=== PATIENT | male | born 1955 | race American Indian/Alaskan Native ===

== ENCOUNTER 2017-01-24 14:07 | Inpatient (IN) | payer OTHER ==
--- NOTE | 2017-01-24 16:13 | XRay Report ---
CHEST 2 VIEWS INDICATION: Chest pain. Possible left rib fractures. COMPARISON: None similar at this institution. FINDINGS: PA and lateral chest radiographs demonstrate normal cardiomediastinal silhouette. Clear lungs. Left seventh and eighth rib fracture suspected. CONCLUSION: Left seventh and eighth ribs acute fractures without acute lung abnormality. Thank you for the opportunity to participate in this patient's care.
--- NOTE | 2017-01-24 16:16 | XRay Report ---
RIB RADIOGRAPHS - LEFT INDICATION: Rib pain. COMPARISON: None similar. FINDINGS: AP and oblique radiographs to evaluate left ribs, 2 projections demonstrate normal cardiomediastinal silhouette. Clear lungs without effusions, CHF or pneumothorax. A 2-3 mm extreme right lung base calcified granuloma possible. Subtle acute fractures noted along left seventh and eighth ribs posteriorly. CONCLUSION: Left seventh and eighth rib acute fractures, as described. Thank you for the opportunity to participate in this patient's care.
[2017-01-24 16:33] LABS: INR 0.97 (0.87-1.13)
[2017-01-24 16:34] LABS: Partial Thromboplastin Time 30.3 Sec. (24.2-36.6)
[2017-01-24 16:42] LABS: Albumin 5.1 g/dL (3.9-5); Albumin/Globulin Ratio 1.1 %; Bilirubin,Direct 0.4 mg/dL (0-0.2); Bilirubin,Indirect 1.6 mg/dL; Magnesium 2.5 mg/dL (1.7-2.3); Total Protein 9.6 g/dL (6.3-8.2)
[2017-01-24 16:43] LABS: Anion Gap 26 mmol/L; BUN/Creatinine Ratio 15; Blood Urea Nitrogen 12 mg/dL (9-20); Calcium 10.9 mg/dL (8.4-10.2); Carbon Dioxide 26 mmol/L (22-30); Chloride 87.4 mmol/L (98-107); Glucose 213 mg/dL (75-100); Potassium 4.9 mmol/L (3.6-5.0); Sodium 134 mmol/L (137-145)
[2017-01-24 16:46] LABS: Basophils % (Auto) 0.6 % (0.0-1.8); Eosinophils % (Auto) 0.3 % (0.0-4.3); Mean Corpuscular HGB Conc 33 % (32-34); Mean Corpuscular Hemoglobin 31 pg (28-32); Mean Corpuscular Volume 94 fl (84-94); Red Cell Distribution Width 16.6 % (13.2-15.2); White Blood Count 6.9 K/mm3 (4.5-11.0)
[2017-01-24 16:59] LABS: Platelet Count 152 K/mm3 (140-440)
[2017-01-24 17:03] LABS: Hemoglobin 21.1 gm/dl (11.8-15.2)
[2017-01-24] MEDS ORDERED: VALIUM IV ONE (18:15)
[2017-01-24] MEDS ORDERED: NACL 0.9% 1000 ML 1,000 ML IV ONE (18:17)
[2017-01-24] MEDS ORDERED: VITAMIN B-1 100 MG, FOLVITE 1 MG, INFUVITE 10 ML in NACL 0.9% 1000 ML 1,000 ML IV ONE (19:30)
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
--- NOTE | 2017-01-24 20:58 | Cat Scan Report ---
FINAL REPORT EXAM: CT HEAD/BRAIN WO CON HISTORY: etoh fall TECHNIQUE: Standard unenhanced CT of the head at 5.0 millimeter axial increments. PRIORS: None. FINDINGS: On image 1, there a small air bubble in the soft tissues adjacent to the lateral wall of the right maxillary sinus. Significance is uncertain. No adjacent fractures are identified. The ventricular system is normal in size and configuration. There is no evidence for parenchymal volume loss. There is no evidence for mass lesion, mass effect, midline shift, acute intracranial hemorrhage, or acute ischemia/ infarction. No evidence for acute skull fracture is seen. No abnormality in the overlying scalp soft tissues is seen. Visualized paranasal sinuses are clear. There is probable cerumen in the right external auditory canal. IMPRESSION: 1. no acute intracranial process noted. 2. Small air bubble in the soft tissues along the lateral wall right maxillary sinus. Significance is uncertain.
--- NOTE | 2017-01-24 21:18 | Cat Scan Report ---
FINAL REPORT EXAM: CT ABDOMEN PELVIS W CON HISTORY: ETOH fall TECHNIQUE: Standard enhanced CT of the abdomen and pelvis. Delayed imaging through the kidneys and bladder was obtained. Coronal and sagittal reconstruction was also performed. Contrast: Intravenous contrast given. PRIORS: None. FINDINGS: Within the abdomen, the liver, spleen, pancreas, gallbladder, adrenal glands, and right kidney are unremarkable. The left kidney is absent. No evidence for retroperitoneal, intraperitoneal, or intramuscular hematoma is seen. The bowel loops have normal caliber. No soft tissue mass, fluid collection, inflammatory change, or free air is seen within the abdomen or pelvis. The appendix is normal. Mild atherosclerotic irregularity of the aorta with calcification of the wall is seen. Within the pelvis, the bladder demonstrates mild wall thickening anteriorly measuring up to 6.5 mm. The prostate is mildly enlarged. No evidence for mass collection is seen in the pelvis. Bony structures show no evidence for fracture. An incidental spina bifida occulta at L5 is noted, likely congenital. IMPRESSION: 1. no acute intra-abdominal process noted. 2. No evidence for bony fracture 3. Bladder wall is mildly thickened anteriorly. This may be due to distension. Bladder ultrasound is warranted on a nonemergent basis. 4. Left kidney is absent 5. Mild prostate enlargement.
--- NOTE | 2017-01-24 21:23 | Cat Scan Report ---
FINAL REPORT EXAM: CT CHEST W CON HISTORY: etoh fallrib fx chest wall pain TECHNIQUE: Standard enhanced CT of the chest at 2.5 mm axial increments. Coronal and sagittal reconstruction was also obtained. Contrast: Intravenous contrast given PRIORS: None. FINDINGS: The lung parenchyma are expanded and clear with no evidence for parenchymal infiltrates, congestion, or pleural effusion. No pneumothorax is noted. No parenchymal lung contusion is seen. Mediastinum has a normal appearance with no evidence for mediastinal hematoma or mediastinal air. Heart, aorta, and other vascular structures appear intact with no evidence for extravasation of contrast. Bony structures show acute fractures of the posterior left 7th and 8th ribs. IMPRESSION: Acute rib fractures of posterior left 7th and 8th ribs. No other acute abnormality identified in the chest.
--- NOTE | 2017-01-24 23:20 | Emergency Department Report ---
Blank Doc - Documentation Documentation: I examined the patient, patient stated that he is feeling better. I discussed with him his alcohol abuse and the need for rehabilitation. Patient agreed to be admitted for alcohol withdrawal symptoms and rehabilitation. Discussed with Dr. Husain for admission. I reviewed his CT abdomen and pelvis and CT chest which she showed left 7 and eight rib fracture, no evidence of pneumothorax.
[2017-01-25] MEDS ORDERED: ATIVAN IV PRN (00:01)
[2017-01-25] MEDS ORDERED: TYLENOL PO PRN (00:02)
[2017-01-25] MEDS ORDERED: ZOFRAN IV PRN (00:03)
[2017-01-25] MEDS: DILAUDID IV PRN ×2 (03:34→17:44)
--- NOTE | 2017-01-25 04:14 | History and Physical Report ---
CHIEF COMPLAINT: Shaking sensation or tremor. Other complaints include frequent fall and chest pain. HISTORY OF PRESENT ILLNESS: The patient is a 61-year-old male who is known to be , consuming alcohol on a regular basis, but did not drink for the last few days and started shaking with frequent falls. The patient has fallen many times in the last 2 days and developed pain in the left chest wall area. There was no history of shortness of breath. No history of fever or chills. No history of nausea or vomiting and the patient did not hit his head on any object or the ground and presented for evaluation. The left lateral chest wall pain is worse with movement and with deep breaths. The patient was evaluated and found to have fracture on the left 7th and 8th ribs. PAST MEDICAL HISTORY: Only pertinent for alcohol abuse. PAST SURGICAL HISTORY: Pertinent for ear surgery. FAMILY HISTORY: Noncontributory. SOCIAL HISTORY: The patient drinks alcohol regularly, smokes cigarettes, does not use illicit drugs. MEDICATIONS: The patient's home medications are not known. ALLERGIES: There are no known drug allergies. REVIEW OF SYSTEMS: CONSTITUTIONAL: There is no fever, no chills, no diaphoresis. HEENT: There is no headache or sore throat. CARDIOVASCULAR SYSTEM: Pain in the left lateral chest wall area noted. No orthopnea. RESPIRATORY SYSTEM: There is no shortness of breath or cough. GASTROINTESTINAL SYSTEM: There is no nausea, no vomiting, no abdominal pain, diarrhea, or constipation. NEUROLOGICAL SYSTEM: Frequent falls noted, tremor or shaking of hands noted. No change in mental status. MUSCULOSKELETAL SYSTEM: There is no joint pain or swelling. DERMATOLOGICAL SYSTEM: There is no skin rash or itching. GENITOURINARY SYSTEM: There is no dysuria, hematuria, or flank pain. Rest of system review is normal. PHYSICAL EXAMINATION: GENERAL: At the time of exam, the patient was found to be alert, oriented x 3 and not in acute distress. VITAL SIGNS: Shows normal temperature with pulse of 79, respirations 21, blood pressure 167/94, O2 sat of 100% on room air. HEENT: Showed pupils to be equal, round, reactive to light and accommodating. Extraocular muscles are intact. NECK: Supple with no JVD or carotid bruit. CARDIOVASCULAR SYSTEM: Show first and second heart sounds with no gallops or murmur. RESPIRATORY SYSTEM: Show good air entry on both sides of the lung with no abnormal breath sounds. GASTROINTESTINAL SYSTEM: Show abdomen to be full, soft, nontender with no organomegaly or rigidity. NEUROLOGIC: Exam shows no focal deficit. The patient was not observed to be having any form of tremor. MUSCULOSKELETAL: Showed tenderness in the left lateral chest wall area and no joint swelling or any other joint tenderness. DERMATOLOGICAL SYSTEM: Show no skin rash. GENITOURINARY: Show no costovertebral angle tenderness. PERTINENT LABORATORY DATA AND IMAGING STUDIES: The patient had CBC done that showed elevated hemoglobin of 21.1 and elevated hematocrit of 63.0. Rest of CBC shows elevated segmented neutrophils of 71.4%. Coagulation studies came back unremarkable. The patient's chemistry shows slight decrease in sodium of 134 and low chloride of 87.4, elevated blood glucose of 213 and elevated magnesium level of 2.5, elevated total bilirubin of 2 with high direct bilirubin of 0.4. The patient's liver transaminases show slight increase in AST of 45 with normal ALT of 40 and troponin levels came back unremarkable. The patient's albumin level was slightly elevated with a value of 5.1. Blood alcohol level was unremarkable with a value of less than 0.01. IMAGING STUDIES: The patient had a CT of the abdomen and pelvis done that came back unremarkable. The patient also had CT of the head done without contrast that showed no acute intracranial process. There is finding of small air bubble in the soft tissue along the lateral wall of the right maxillary sinus and the radiologist say that the significance is uncertain. The patient had chest CT done that shows acute rib fracture of the posterior left 7th and 8th ribs. Also, the patient had x-ray of the ribs done that also showed a left 7th and 8th rib fracture and the patient's chest x-ray shows some left 7th and 8th rib fracture without any acute lung abnormality. DIAGNOSES: Includes: 1. Alcohol withdrawal syndrome. 2. Left 7th and 8th rib fracture. 3. Elevated hemoglobin and hematocrit level. PLAN: The patient will be admitted to medical floor on telemetry. He will be on IV normal saline at 125 mL an hour. The patient will also be on IV Ativan 2 mg every 4 hours as needed for alcohol withdrawal, signs like agitation and anxiety and combativeness. The patient will be on IV Zofran 4 mg every 8 hours as needed for nausea and vomiting and will be on Tylenol 650 mg by mouth every 4 hours. The patient will be on Dilaudid 0.5 mg IV every 3 hours as needed for pain and will have CBC and basic metabolic panel checked in the morning. The patient will be on banana bag once a day. JOB# [id number] OCN/NTS MTDD
[2017-01-25 06:56] LABS: Anion Gap 16 mmol/L; BUN/Creatinine Ratio 17; Blood Urea Nitrogen 10 mg/dL (9-20); Calcium 9.1 mg/dL (8.4-10.2); Carbon Dioxide 30 mmol/L (22-30); Chloride 95.1 mmol/L (98-107); Glucose 169 mg/dL (75-100); Potassium 4.4 mmol/L (3.6-5.0); Sodium 137 mmol/L (137-145)
--- NOTE | 2017-01-25 07:39 | XRay Report ---
BILATERAL SHOULDERS, 3 VIEWS History: Shoulder pain after fall. Findings: Normal bone mineralization. 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 There is a distal left clavicle deformity which has the appearance of an ununited, chronic fracture. No definite acute fracture. No dislocation or ligamentous injury. Impression: Distal left clavicle deformity which appears chronic. Please correlate with the patient. Osteoarthritic changes.
[2017-01-25] MEDS: HEPARIN SUB-Q SCH ×2 (09:52→23:16)
[2017-01-25 12:59] LABS: Basophils % (Auto) 0.9 % (0.0-1.8); Eosinophils % (Auto) 1.7 % (0.0-4.3); Hematocrit 51.1 % (35.5-45.6); Hemoglobin 17.3 gm/dl (11.8-15.2); Mean Corpuscular HGB Conc 34 % (32-34); Mean Corpuscular Hemoglobin 32 pg (28-32); Mean Corpuscular Volume 93 fl (84-94); Platelet Count 122 K/mm3 (140-440); Red Cell Distribution Width 16.2 % (13.2-15.2); White Blood Count 4.3 K/mm3 (4.5-11.0)
[2017-01-25 13:37] LABS: Alanine Aminotransferase 26 units/L (7-56); Albumin 3.6 g/dL (3.9-5); Albumin/Globulin Ratio 1.1 %; Alkaline Phosphatase 84 units/L (35-129); Anion Gap 16 mmol/L; BUN/Creatinine Ratio 13; Blood Urea Nitrogen 8 mg/dL (9-20); Calcium 8.8 mg/dL (8.4-10.2); Carbon Dioxide 28 mmol/L (22-30); Chloride 93.1 mmol/L (98-107); Glucose 271 mg/dL (75-100); Lactate Dehydrogenase 220 units/L (91-180); Potassium 3.8 mmol/L (3.6-5.0); Sodium 133 mmol/L (137-145)
[2017-01-25 13:42] LABS: Total Protein 6.9 g/dL (6.3-8.2)
--- NOTE | 2017-01-25 16:17 | Event Note ---
Date: 01/25/17 Patient was seen and evaluated this morning, patient is admitted for frequent falls, fracture of the left seventh and eighth ribs due to fall. Patient said he has been drinking about 2 beers a day and I don't believe the patient has DT , hemoglobin and hematocrit is high and I ordered erythropeoitin level to evaluate for PV. Patient admitted and H&P done this morning.
--- NOTE | 2017-01-25 19:26 | Consultation ---
History of Present Illness - Reason for Consult Consult date: 01/25/17 polycythemia. Requesting physician: HENOK MENESES - History of Present Illness Thank you for this consult, patient seen/examined,resting in bed, records reviewed, case d/w patient. Kindly asked to see for the reasons of polycythema.Hct came down from 60s to 51, Patient denies any sob, but reports occational HD, blurry vision, and flushing, all probably due to his cythemia.He is a heavy smoker, and denies any other medical hx. He presented post a fall accident pain, on the lower left rib area.I have reviewed all the scans done so far.Will do some w/u to r/o primary vs secondary etiology.see orders. Past History Social history: smoking Medications and Allergies Allergies Allergy/AdvReac Type Severity Reaction Status Date / Time No Known Allergies Allergy Unverified 01/24/17 15:18 Home Medications Medication Instructions Recorded Confirmed Last Taken Type No Known Home Medications [No 01/24/17 01/24/17 Unknown History Reported Home Medications] Active Meds: Active Medications Acetaminophen (Tylenol) 650 mg PO Q4H PRN PRN Reason: For Pain/Fever/Headache Heparin Sodium (Porcine) (Heparin) 5,000 unit SUB-Q Q12HR CARMELLA Last Admin: 01/25/17 09:52 Dose: 5,000 unit Hydromorphone HCl (Dilaudid) 0.5 mg IV Q3H PRN PRN Reason: Pain , Severe (7-10) Last Admin: 01/25/17 17:44 Dose: 0.5 mg Thiamine HCl 100 mg/ Folic Acid 1 mg/ Multivitamins/Minerals 10 ml/ Sodium Chloride 1,011.2 mls @ 250 mls/hr IV Q24H CARMELLA Stop: 01/26/17 03:03 Lorazepam (Ativan) 2 mg IV Q4H PRN PRN Reason: Alcohol Withdrawal Ondansetron HCl (Zofran) 4 mg IV Q8H PRN PRN Reason: Nausea And Vomiting Review of Systems Constitutional: chronic pain Exam - Constitutional Vitals: Temp Pulse Resp BP Pulse Ox 98.7 F 75 17 150/85 98 01/25/17 04:19 01/25/17 04:19 01/25/17 04:19 01/25/17 04:19 01/25/17 04:19 General appearance: Present: mild distress - EENT Eyes: Present: PERRL ENT: hearing intact, clear oral mucosa - Neck Neck: Present: supple, normal ROM - Respiratory Respiratory effort: normal Respiratory: bilateral: CTA - Cardiovascular Heart Sounds: Present: S1 & S2. Absent: rub, click - Extremities Extremities: pulses symmetrical, No edema Peripheral Pulses: within normal limits - Abdominal General gastrointestinal: Present: soft, non-tender, non-distended, normal bowel sounds Male genitourinary: Present: deferred - Rectal Rectal Exam: deferred - Integumentary Integumentary: Present: clear, warm, dry - Musculoskeletal Musculoskeletal: gait normal, strength equal bilaterally - Psychiatric Psychiatric: appropriate mood/affect, intact judgment & insight - Neurologic Neurologic: CNII-XII intact, moves all extremities Results - Labs CBC & Chem 7: 01/25/17 12:25 01/25/17 12:25 Labs: Abnormal lab results 01/25/17 01/25/17 01/25/17 Range/Units 05:14 12:25 12:25 WBC 4.3 L (4.5-11.0) K/mm3 RBC 5.50 H (3.65-5.03) M/mm3 Hgb 17.3 H D (11.8-15.2) gm/dl Hct 51.1 H D (35.5-45.6) % RDW 16.2 H (13.2-15.2) % Plt Count 122 L (140-440) K/mm3 [place] % (Auto) 7.8 H (0.0-7.3) % Lymph # 1.1 L (1.2-5.4) K/mm3 Sodium 133 L (137-145) mmol/L Chloride 95.1 L 93.1 L (98-107) mmol/L BUN 8 L (9-20) mg/dL Creatinine 0.6 L 0.6 L (0.8-1.5) mg/dL Glucose 169 H 271 H (75-100) mg/dL Total Bilirubin 1.40 H (0.1-1.2) mg/dL Lactate Dehydrogenase 220 H (91-180) units/L Albumin 3.6 L (3.9-5) g/dL Assessment and Plan - Patient Problems (1) Falls Current Visit: Yes Status: Acute Qualifiers: Encounter type: E Plan to address problem: pain control (2) Multiple rib fractures Current Visit: Yes Status: Acute Qualifiers: Encounter type: E Fracture type: F Laterality: L Fracture healing: F Plan to address problem: pain control (3) Polycythemia Current Visit: Yes Status: Acute Plan to address problem: see w/up., rec ASA, and if not improving, may do phlebotomy. will be careful of reducing the hct too low, and too fast, as he may depend on high hct for oxygenation.
[2017-01-25] MEDS ORDERED: VITAMIN B-1 100 MG, FOLVITE 1 MG, INFUVITE 10 ML in NACL 0.9% 1000 ML 1,000 ML IV SCH (23:00)
[2017-01-26 05:46] LABS: Eosinophils % (Auto) 2.2 % (0.0-4.3); Hematocrit 48.5 % (35.5-45.6); Hemoglobin 16.4 gm/dl (11.8-15.2); Mean Corpuscular HGB Conc 34 % (32-34); Mean Corpuscular Hemoglobin 32 pg (28-32); Mean Corpuscular Volume 94 fl (84-94); Platelet Count 131 K/mm3 (140-440); Red Blood Count 5.18 M/mm3 (3.65-5.03); Red Cell Distribution Width 15.9 % (13.2-15.2)
[2017-01-26 06:10] LABS: Anion Gap 15 mmol/L; BUN/Creatinine Ratio 16; Blood Urea Nitrogen 11 mg/dL (9-20); Calcium 9.1 mg/dL (8.4-10.2); Carbon Dioxide 29 mmol/L (22-30); Chloride 96.5 mmol/L (98-107); Glucose 213 mg/dL (75-100); Potassium 4.2 mmol/L (3.6-5.0); Sodium 136 mmol/L (137-145)
[2017-01-26] MEDS ORDERED: PERCOCET 5/325 PO PRN (09:00)
[2017-01-26] MEDS: HEPARIN SUB-Q SCH (11:12)
--- NOTE | 2017-01-26 16:15 | Discharge Summary ---
Providers - Providers Date of Admission: 01/25/17 00:00 Date of discharge: 01/26/17 Attending physician: HENOK MNEESES MD 01/25/17 06:04 Consult to Mental Health [CONS] Routine Reason For Exam: ALCOHOL ABUSE IN NEED OF REHAB Place consult to:: MENTAL HEALTH Notified:: y Was contact made?: Yes 01/25/17 15:55 Physical Therapy Evaluation and Treat [CONS] Routine Comment: Reason For Exam: Fall 01/25/17 16:18 Consult to Physician [CONS] Routine Consulting Provider: HOWARD TOPETE Reason For Exam: evaluate for polycythemia Place consult to:: HEMATOLOGY Notified:: yes Was contact made?: Yes If yes, spoke with:: Dr topete Time called:: 17:06 Primary care physician: PEACE OFFICER Hospitalization Reason for admission: frequent fall, left 7and 8th rib fracture Condition: Good Pertinent studies: Chest CT shows left 7th and 8th rib fracture Hospital course: This is a 61-year-old male. The patient is previously known to this provider. Patient presents to the ER with left-sided chest wall pain after a fall. Patient has fallen several times in the past 2 days. patient drinks 1-2 beers a day. The patient last fell around 2 days ago. He did not hit his head, he did not hit his neck. He has left-sided chest wall pain which is sharp, increases with palpation, deep inspiration, region motion, and decreases with rest. She was admitted to the floor and he was treated with pain medicine for rib fracture. PT was evaluated and recommended home health PT. Patient was discharged home with home health PT and pain medicine for the pain. Patient didn't have any history of DT, and is not heavy drinker. patient was hemodynamically stable at the time of discharge. Disposition: [id number] HOME UNDER [facility] Time spent for discharge: 31 minutes - Discharge Diagnoses (1) Falls Status: Acute Qualifiers: Encounter type: E (2) Multiple rib fractures Status: Acute Qualifiers: Encounter type: E Fracture type: F Laterality: L Fracture healing: F (3) Polycythemia Status: Acute Core Measure Documentation - Palliative Care Palliative Care/ Comfort Measures: Not Applicable - Core Measures Any of the following diagnoses?: none Exam - Physical Exam Narrative exam: Not in cardiopulmonary distress. The patient appeared well nourished and normally developed. Vital signs as documented. Head exam is unremarkable. No scleral icterus . Neck is without jugular venous distension, thyromegaly, or carotid bruits. Lungs are clear to auscultation. Chest pain tenderness on the posterior seventh and eighth Ribs. Cardiac exam reveals regular rate and Rhythm. First and second heart sounds normal. No murmurs, rubs or gallops. Abdominal exam reveals normal bowel sounds, no masses, no organomegaly and no aortic enlargement. Extremities are nonedematous and both femoral and pedal pulses are normal. AUGER SUPERVISOR: Alert and oriented 3. No focal weakness. - Constitutional Vitals: Temp Pulse Resp BP Pulse Ox 98.9 F 85 16 133/88 98 01/26/17 08:49 01/26/17 11:00 01/26/17 08:49 01/26/17 08:49 01/26/17 08:49 Plan Activity: fall precautions Weight Bearing Status: Full Weight Bearing Special Instructions: physical therapy Additional Instructions: Please follow at [facility] in 1 week. Follow up with: PRIMARY CAREMD [Primary Care Provider] - 3-5 Days HOWARD TOPETE DO [Staff Physician] - 7 Days Prescriptions: HYDROcodone/APAP 10-325 [[place] 10/325] 1 each PO Q6HR PRN #12 tablet PRN Reason: Pain
[2017-01-26 17:54] VITALS: BP 146/88
== END 2017-01-26 18:12 | disposition home health service (06) | DRG 184 ==
LOC: ED 14:07 → 4A 01-25
PROVIDERS: ADMIT Internal Medicine; ATTEND Internal Medicine
DX: S22.49XA Multiple fractures of ribs, unspecified side, initial encounter for closed fracture (principal); F10.239 Alcohol dependence with withdrawal, unspecified; W19.XXXA Unspecified fall, initial encounter; Y93.89 Activity, other specified; Y92.89 Other specified places as the place of occurrence of the external cause; Y99.8 Other external cause status; F17.200 Nicotine dependence, unspecified, uncomplicated; D75.1 Secondary polycythemia
CPT/HCPCS: 36415; 70450; 71020; 71260; 74177; 80048; 80053; 80074; 80320; 82140; 82607; 82668; 82747; 83615; 83735; 84484; 85025; 85384; 85610; 85730; 86803; 93005; 93010; 96361; 96365; 96366; 96375; 99285; 99406; G0480; J1170; J1644; J2060; J3360; J3411; J7030; Q9967